=== PATIENT | male | born 1990 | race Caucasian/White ===

== ENCOUNTER → 2023-11-02 | Outpatient (CLI) | LOC: M SOG 13:08 | PROVIDERS: ATTEND Physician Assistant | DX: M25.522 Pain in left elbow (principal); Z53.8 Procedure and treatment not carried out for other reasons ==

== ENCOUNTER → 2023-12-02 | Outpatient (CLI) | payer OTHER | LOC: M RAD 08:06 | PROVIDERS: ATTEND Physician Assistant | DX: M25.522 Pain in left elbow (principal) ==

== ENCOUNTER 2024-02-15 14:04 | Day surgery (SDC) | payer OTHER ==
[~2024-02-15] VITALS: Ht 175.3 cm; Wt 86.2 kg
[~2024-02-15 14:04] MED LIST: ALBU8.5H; CETI-24 PO; FEXO-116 PO; MONT10TA97 PO
[2024-02-15] MEDS: CelecoXIB 400 MG CAP PO ONE (15:55)
[2024-02-15] MEDS ORDERED: ROCURONIUM BROMIDE 50MG/5ML VIAL As Ordered ONE (16:10)
[2024-02-15] MEDS ORDERED: LIDOCAINE 2% 100MG/5ML SDV (FOR ANES.) As Ordered ONE (16:10)
[2024-02-15] MEDS ORDERED: propofoL 200 MG/20 ML VIAL As Ordered ONE (16:10)
[2024-02-15] MEDS ORDERED: ONDANSETRON 4MG 2ML VIAL As Ordered ONE (16:10)
[2024-02-15] MEDS ORDERED: MIDAZOLAM INJ 2MG/2ML VIAL As Ordered ONE (16:11)
[2024-02-15] MEDS ORDERED: fentaNYL 250 MCG/5 ML INJECTION As Ordered ONE (16:11)
[2024-02-15] MEDS ORDERED: KETOROLAC 60MG 2ML VIAL As Ordered ONE (16:11)
[2024-02-15] MEDS ORDERED: SUGAMMADEX SODIUM 500 MG/5 ML VIAL (BRIDION) As Ordered ONE (16:32)
[2024-02-15] MEDS ORDERED: dexmedeTOMIDine (4MCG/ML)200MCG/50ML BTL (PRECEDEX) As Ordered ONE (17:28)
[2024-02-15] MEDS ORDERED: HYDR-4571 PO (17:30)
[2024-02-15] MEDS: ceFAZolin SOD 2 GM in IV 1 EA IV ONE (18:07)
[2024-02-15] MEDS ORDERED: ACETAMINOPHEN 1000MG/100ML IV BAG As Ordered ONE (18:16)
[2024-02-15] MEDS ORDERED: HYDROmorphone HCL 2MG/ML 1ML VIAL As Ordered ONE (18:44)
[2024-02-15] MEDS: LIDOCAINE 1% MDV 20ML VIAL As Ordered ONE (20:00)
[2024-02-15] MEDS ORDERED: fentaNYL 100 MCG/2 ML INJECTION IV PRN (20:05)
[2024-02-15] MEDS ORDERED: oxyCODONE 5MG TAB PO PRN (20:05)
[2024-02-15] MEDS ORDERED: ONDANSETRON 4MG 2ML VIAL IV PRN (20:05)
[2024-02-15] MEDS ORDERED: LR 1,000 ML IV SCH (20:05)
[2024-02-15] MEDS ORDERED: HYDROMORPHONE HCL 0.5 MG/ 0.5 ML SYRINGE IV PRN (20:05)
[2024-02-15 21:00] VITALS: BP 137/78; TEMP 98.7; O2SAT 96
== END 2024-02-15 21:45 | disposition home or self-care (01) ==
LOC: M SDC 14:04
PROVIDERS: ATTEND Surgery
DX: K42.0 Umbilical hernia with obstruction, without gangrene (principal); K66.0 Peritoneal adhesions (postprocedural) (postinfection); Z79.899 Other long term (current) drug therapy
CPT/HCPCS: 49594; 64488; C1781; J0131; J0665; J0690; J1100; J1171; J1885; J2250; J2405; J3010; S2900